=== PATIENT | male | born 1935 | race Caucasian/White ===

== ENCOUNTER 2021-05-28 13:13 | Emergency (ER) | payer MEDICARE, SELFPAY ==
[2021-05-28 13:20] VITALS: BP 150/91; PULSE 57; RESP 18; O2SAT 99; BMI 29.9
[2021-05-28 13:26] VITALS: PULSE 57; O2SAT 99
--- NOTE | 2021-05-28 13:27 | W.ED.MALEGU ---
HPI - Male Genitourinary General: Chief complaint: Urogenital-Male Stated complaint: NO URINE OUTPUT Time Seen by Provider: 05/28/21 13:21 Source: patient and EMS Mode of arrival: EMS Limitations: no limitations History of Present Illness: HPI Narrative: Patient is an 85-year-old male who has an indwelling Bridges catheter due to an enlarged prostate and states that so far today the Bridges catheter has not drained any urine. He is in a lot of pain in the suprapubic region. He denies any trauma, fever, other symptoms. Onset (ago): hour(s) Duration: constant Location: abdomen (Suprapubic) Severity scale (1-10): 10 Quality: aching Relieving factors: none Exacerbating factors: none Associated symptoms: Reports urinary retention; Deny discharge, dysuria, fevers/chills, hematuria, nausea, rash, swelling, urinary incontinence, mass or vomiting Review of Systems General: Reports: 10 or more systems reviewed and unremarkable except in HPI and below GI: Denies: nausea or vomiting : Denies: dysuria, urinary incontinence or hematuria Physical Exam Const: COMMON NORMALS: average body habitus, patient oriented x3, no limitations, healthy appearing, alert and well nourished GENERAL APPEARANCE: in distress HENMT: COMMON NORMALS: normocephalic, atraumatic and moist oral mucous membranes HEAD & SCALP: normocephalic and atraumatic Neck/C-Spine: COMMON NORMALS: no JVD Resp: COMMON NORMALS: normal respiratory effort, No retractions, No use of accessory muscles, clear to auscultation bilaterally and percussion normal AUSCULTATION: clear to auscultation bilaterally PERCUSSION: percussion normal Cardio: COMMON NORMALS: no JVD, regular rate, regular rhythm, S1 normal heart sound present, S2 normal heart sound present, No gallops present (Cardio), No clicks present (Cardio), No murmurs present (Cardio), No rub (Cardio) and Peripheral pulses 2+ throughout RATE: regular rate RHYTHM: regular rhythm HEART SOUNDS: S1 normal heart sound present and S2 normal heart sound present PERIPHERAL PULSES: Peripheral pulses 2+ throughout GI: COMMON NORMALS: Normal to inspection, nondistended, normoactive bowel sounds present, Soft to palpation, No hepatosplenomegaly present, no masses and no bruits PALPATION: Yes Soft to palpation, Yes Tenderness to palpation present (GI) (Suprapubic) and Yes No hepatosplenomegaly present Neuro: COMMON NORMALS: patient oriented x3 SENSORIUM/ORIENTATION: Yes alert Course Reevaluation(s): Reevaluation #1: Discussed his urinalysis with him. He appears to have a urinary tract infection. We will discharge him home with a prescription for oral antibiotics. He voiced understanding and is in agreement with the plan. He felt immediate relief after his Bridges catheter was changed and a new one inserted. He has drained about 400 mL of urine. Time: 14:29 Vital Signs: Vital signs: Vital Signs Pulse Rate 53 L 05/28/21 14:39 Respiratory Rate 18 05/28/21 14:39 Blood Pressure 136/50 05/28/21 14:39 Pulse Oximetry 96 05/28/21 14:39 MDM - Male MDM Narrative: Medical decision making narrative: 85-year-old male with a history of prostate issues who has a chronic indwelling Bridges catheter presents to the emergency department today after the catheter stopped draining urine earlier today. He was in acute urinary retention which promptly resolved following insertion of a new catheter. Analysis of his urine shows that he has a urinary tract infection and he is discharged home with oral antibiotic. He is to follow-up with his primary care provider and urologist. Medical Records: Attestation: I reviewed the patient's medical records. Lab Data: Attestation: I reviewed the patient's lab results. Labs: Lab Results 05/28/21 Range/Units 13:41 Urine Color Yellow (Yellow) Urine Appearance Hazy A (CLEAR) Urine pH 8 H (5-7) Ur Specific Gravit y 1.018 (1.005-1.030) Urine Protein 1+ H (Negative) Urine Glucose (UA) Norm (Normal) Urine Ketones 1+ H (Negative) Urine Blood 3+ H (Negative) Urine Nitrate Positive H (Negative) Urine Bilirubin Neg (Negative) Prot Sulfosalicyli c Acd Positive (Negative) Urine Urobilinogen Neg (Negative) mg/dL Ur Leukocyte Kandi ase 2+ H (Negative) Urine RBC 15-25 H (0-2) /hpf Urine WBC 25-40 H (0-5) /hpf Ur Squamous Epith Cells 0-4 H (0-5) /hpf Amorphous Sediment Not Reportable Urine Bacteria 4+ H (NONE) /hpf Urine Mucus 2+ /hpf Discharge Plan Discharge Patient Disposition: Home Clinical Impression: Acute retention of urine Urinary tract infection Qualifiers: Urinary tract infection type: catheter-associated UTI Indwelling urinary catheter type: indwelling urethral catheter Encounter type: initial encounter Qualified Code(s): T83.511A - Infection and inflammatory reaction due to indwelling urethral catheter, initial encounter Condition: Stable Prescriptions: New Augmentin 500-125 mg tablet 1 tab PO BID Qty: 14 RF: 0 Discharge Orders: Discharge ED (Routine); Ordered 05/28/21 Ordered By: James Smith Referrals: Scar Bell DO [Primary Care Provider] - 1-3 days Discharge Diet: Usual diet Discharge Activity: Increase activity as tolerated Patient Instructions: Urinary Retention in Men (ED), Urinary Tract Infection in Men (ED) Activity Restrictions/Additional Instructions: Return for any new or worsening symptoms. Follow-up with your primary care provider within 3 days. Continue your home medications. Take the antibiotic as prescribed. Coding Level of Care Code ED Associate Professor Of Radiology for [employer] Fwd Exam Detailed
[2021-05-28 14:08] LABS: Protein Urine 1+ (Negative); Specific Gravity, Urine 1.018 (1.005-1.030); Urine Appearance Hazy (CLEAR); Urine Color Yellow (Yellow); pH Urine 8 (5-7)
[2021-05-28 14:09] LABS: Add Urine Culture? Yes; Add Urine Microscopic? YES; Bacteria Urine 4+ /hpf; Bilirubin Urine Neg (Negative); Blood Urine 3+ (Negative); Glucose Urine UA Norm (Normal); Ketones Urine 1+ (Negative); Leukocyte Esterase Urine 2+ (Negative); Mucus Urine 2+ /hpf; Nitrate Urine Positive (Negative); RBC Urine 15-25 /hpf (0-2); Squamous Epithelial Cell Urine 0-4 /hpf (0-5); Sulfosalicylic Acid Urine Positive (Negative); Urobilinogen Urine Neg (Negative); WBC Urine 25-40 /hpf (0-5)
[2021-05-28 14:39] VITALS: BP 136/50; PULSE 53; RESP 18; O2SAT 96
== END 2021-05-28 14:40 | disposition home or self-care (01) ==
PROVIDERS: Emergency Provider Family Medicine; PCP Family Medicine
DX: T83.518A Infection and inflammatory reaction due to other urinary catheter, initial encounter (principal); N39.0 Urinary tract infection, site not specified; N40.1 Benign prostatic hyperplasia with lower urinary tract symptoms; R33.8 Other retention of urine; N40.0 Benign prostatic hyperplasia without lower urinary tract symptoms; Z96.0 Presence of urogenital implants; Y84.8 Other medical procedures as the cause of abnormal reaction of the patient, or of later complication, without mention of misadventure at the time of the procedure
CPT/HCPCS: 51702; 81001; 87077; 87086; 87186; 99283

== ENCOUNTER 2021-07-04 20:24 | Emergency (ER) | payer OTHER, MEDICARE, SELFPAY ==
[2021-07-04 20:30] VITALS: BP 152/63; PULSE 66; RESP 18; TEMP 36.8; O2SAT 97; BMI 29.7
--- NOTE | 2021-07-04 20:43 | W.ED.MALEGU ---
HPI - Male Genitourinary General: Chief complaint: Urogenital-Male Stated complaint: blocked catheter Time Seen by Provider: 07/04/21 20:41 History of Present Illness: HPI Narrative: 85-year-old male patient comes in with abdominal discomfort due to poor urinary output. Patient has had a Bridges catheter since February due to prostatic hypertrophy. Patient had the catheter replaced last month in the emergency room for similar complaints. Patient was placed on antibiotic today but has yet to be started on it. Patient appears well. Patient denies any fever. Patient appears in mild to moderate pain. Review of Systems General: Reports: 10 or more systems reviewed and unremarkable except in HPI and below GI: Reports: abdominal pain Physical Exam Const: COMMON NORMALS: no acute distress and patient oriented x3 GENERAL APPEARANCE: cooperative HENMT: COMMON NORMALS: normocephalic and Normal external nose present HEAD & SCALP: normal to inspection and normocephalic NOSE: Normal external nose present Eye: GENERAL EYE: appearance normal, both eyes and all related structures Neck/C-Spine: COMMON NORMALS: full ROM Chest: COMMONS NORMALS: normal inspection of the chest Resp: COMMON NORMALS: normal respiratory effort EFFORT & INSPECTION: Yes able to speak in complete sentences Cardio: COMMON NORMALS: regular rate and regular rhythm RATE: regular rate RHYTHM: regular rhythm GI: COMMON NORMALS: non-tender : COMMON NORMALS: Yes no CVA tenderness BLADDER/KIDNEY EXAM: Yes no CVA tenderness OTHER: Urine is noted in the leg bag of catheter. Patient reports suprapubic discomfort on palpation. Back/Pelvis: COMMON NORMALS: no CVA tenderness and thoracic and lumbar spine normal to inspection Extremity: COMMON NORMALS: normal to inspection Neuro: COMMON NORMALS: patient oriented x3 and moves all extremities Psych: COMMON NORMALS: mental status grossly normal and cooperative Skin: COMMON NORMALS: no rashes or lesions noted GENERAL SKIN EXAM: no rashes or lesions noted Course Vital Signs: Vital signs: Vital Signs Temperature 98.2 F 07/04/21 20:30 Pulse Rate 62 07/04/21 21:07 Respiratory Rate 20 H 07/04/21 21:07 Blood Pressure 145/76 07/04/21 21:07 Pulse Oximetry 98 07/04/21 21:07 MDM - Male MDM Narrative: Medical decision making narrative: Patient came in for urinary catheter not draining. Patient had talked to his primary care earlier today and they were supposed to call in an antibiotic but they did not. Patient came in tonight due to worsening pain and discomfort. On exam abdomen was tender in the suprapubic area. Respirations were even lungs were clear to auscultation. Skin was warm and dry. Differential diagnosis includes UTI, acute urinary retention, dysfunctional Bridges catheter. Bridges catheter was replaced urine was sent to lab and noted a large amount of white blood cells and red blood cells. Patient will be started on Cipro 500 mg twice a day for the next 7 days. Patient did report relief after Bridges catheter change. Patient will be continued with routine care and follow-up with primary care as needed. Lab Data: Labs: Lab Results 07/04/21 Range/Units 21:01 Urine Color Yellow (Yellow) Urine Appearance Cloudy (CLEAR) Urine pH 5 (5-7) Ur Specific Gravit y 1.025 (1.005-1.030) Urine Protein Neg (Negative) Urine Glucose (UA) Norm (Normal) Urine Ketones Negative (Negative) Urine Blood 3+ H (Negative) Urine Nitrate Negative (Negative) Urine Bilirubin Neg (Negative) Urine Urobilinogen Norm (Negative) mg/dL Ur Leukocyte Kandi ase 2+ H (Negative) Urine RBC Too numerous to c nt H (0-2) /hpf Urine WBC Too numerous to c nt H (0-5) /hpf Ur Squamous Epith Cells 5-10 H (0-5) /hpf Amorphous Sediment Not Reportable Urine Bacteria 2+ H (NONE) /hpf Urine Mucus 1+ /hpf Discharge Plan Discharge Patient Disposition: Home Clinical Impression: Acute retention of urine Urinary tract infection Qualifiers: Urinary tract infection type: acute cystitis Hematuria presence: with hematuria Qualified Code(s): N30.01 - Acute cystitis with hematuria Condition: Stable Prescriptions: New Cipro 500 mg tablet 500 mg PO BID Qty: 14 RF: 0 No Action Augmentin 500-125 mg tablet 1 tab PO BID Qty: 14 RF: 0 Discharge Orders: Discharge ED (Routine); Ordered 07/04/21 Ordered By: Jimy Elliott Referrals: Delmy Espinosa MD [Primary Care Provider] - Discharge Diet: Usual diet Discharge Activity: Increase activity as tolerated Patient Instructions: Bridges Catheter Placement and Care (ED), Opioid Safety Activity Restrictions/Additional Instructions: Drink plenty of fluids. Use antibiotics as directed for the next 7 days. Follow-up with primary care in 7 days for recheck of urine. Return to the ER for new concerns. Coding Level of Care Code ED Network Operations Manager for [employer] Fwkin Exam Comprehensive
[2021-07-04 21:07] VITALS: BP 145/76; PULSE 62; RESP 20; O2SAT 98
[2021-07-04 21:32] LABS: Add Urine Microscopic? YES; Bilirubin Urine Neg (Negative); Blood Urine 3+ (Negative); Glucose Urine UA Norm (Normal); Ketones Urine Negative (Negative); Leukocyte Esterase Urine 2+ (Negative); Nitrate Urine Negative (Negative); Protein Urine Neg (Negative); Specific Gravity, Urine 1.025 (1.005-1.030); Urine Appearance Cloudy (CLEAR); Urine Color Yellow (Yellow); Urobilinogen Urine Norm (Negative); pH Urine 5 (5-7)
[2021-07-04 21:33] LABS: Add Urine Culture? Yes; Bacteria Urine 2+ /hpf; Mucus Urine 1+ /hpf; RBC Urine TOO NUMEROUS TO CNT /hpf (0-2); WBC Urine TOO NUMEROUS TO CNT /hpf (0-5)
[2021-07-04] MEDS: ciprofloxacin 500 mg Tablet PO (21:42)
[2021-07-04 21:59] VITALS: BP 140/72; PULSE 66; RESP 18; O2SAT 98
== END 2021-07-04 22:06 | disposition home or self-care (01) ==
PROVIDERS: Emergency Provider Nurse Practitioner Family; PCP Family Medicine
DX: N30.01 Acute cystitis with hematuria (principal); R33.9 Retention of urine, unspecified
CPT/HCPCS: 51702; 81001; 87077; 87086; 87186; 99283

== ENCOUNTER 2021-08-01 08:21 | Emergency (ER) | payer OTHER, MEDICARE, SELFPAY ==
[2021-08-01 08:33] VITALS: BP 149/57; PULSE 64; RESP 24; TEMP 36.5; O2SAT 95; BMI 29.7
--- NOTE | 2021-08-01 08:43 | W.ED.MALEGU ---
Documented by User: MEGHAN Dumont 08/01/21 11:47 HPI - Male Genitourinary General: Chief complaint: Urogenital-Male Stated complaint: CLOGGED CATHETER Time Seen by Provider: 08/01/21 08:25 History of Present Illness: HPI Narrative: Patient states he has had a Bridges cath in since February. He gets clogged about once a month he has had have a change. Never has been taught how to flush the catheter. Personally cath seems to have got stopped up last night and he is in here to get it clear to get it changed. Does see a urologist in [place]. Complaint: other (Clogged Bridges catheter) Onset (ago): hour(s) Duration: constant Review of Systems Const: Denies: fever(s) or chills : Reports: difficulty urinating; Denies: flank pain Psych: Denies: anxiety or depression Physical Exam Const: COMMON NORMALS: no acute distress GENERAL APPEARANCE: cooperative : COMMON NORMALS: Yes no CVA tenderness BLADDER/KIDNEY EXAM: Yes no CVA tenderness MALE GROIN/PERINEUM EXAM: Yes other (Catheter is in place) Back/Pelvis: COMMON NORMALS: no CVA tenderness Psych: ATTITUDE: Yes calm Course Vital Signs: Vital signs: Vital Signs Temperature 97.7 F 08/01/21 08:33 Pulse Rate 55 L 08/01/21 10:18 Respiratory Rate 20 H 08/01/21 10:18 Blood Pressure 122/40 08/01/21 10:18 Pulse Oximetry 97 08/01/21 10:18 MDM - Male MDM Narrative: Medical decision making narrative: Patient's Bridges was clogged. New Bridges was placed in. UA shows infection. Patient placed on Macrobid called in the [facility]. Discharge Plan Discharge Patient Disposition: Home Clinical Impression: UTI (urinary tract infection), uncomplicated Complication of Bridges catheter Qualifiers: Encounter type: initial encounter Qualified Code(s): T83.9XXA - Unspecified complication of genitourinary prosthetic device, implant and graft, initial encounter Condition: Stable Prescriptions: New Macrobid 100 mg capsule 100 mg PO BID 5 Days Qty: 10 RF: 0 No Action Cipro 500 mg tablet 500 mg PO BID Qty: 14 RF: 0 Augmentin 500-125 mg tablet 1 tab PO BID Qty: 14 RF: 0 Discharge Orders: Discharge ED (Routine); Ordered 08/01/21 Ordered By: Kel Otero Referrals: Delmy Espinosa MD [Primary Care Provider] - Discharge Diet: Usual diet Discharge Activity: Resume usual activity Patient Instructions: Bridges Catheter Placement and Care (ED) Activity Restrictions/Additional Instructions: Follow-up urologist as directed. Flush catheter as needed and instructed. Coding Level of Care Code ED Supervisor Tunnel Heading for Chg Fwd Exam Expanded Problem Focused Documented by User: Richard Farrell DO 08/02/21 10:43 HPI - Male Genitourinary General: Chief complaint: Urogenital-Male Stated complaint: CLOGGED CATHETER Time Seen by Provider: 08/01/21 08:25 Course Vital Signs: Vital signs: Vital Signs Temperature 97.7 F 08/01/21 08:33 Pulse Rate 55 L 08/01/21 10:18 Respiratory Rate 20 H 08/01/21 10:18 Blood Pressure 122/40 08/01/21 10:18 Pulse Oximetry 97 08/01/21 10:18 MDM - Male MDM Narrative: Medical decision making narrative: Patient seen by Kel Otero Case reviewed agree with assessment and plan Discharge Plan Discharge Patient Disposition: Home Clinical Impression: UTI (urinary tract infection), uncomplicated Complication of Bridges catheter Qualifiers: Encounter type: initial encounter Qualified Code(s): T83.9XXA - Unspecified complication of genitourinary prosthetic device, implant and graft, initial encounter Condition: Stable Prescriptions: New Macrobid 100 mg capsule 100 mg PO BID 5 Days Qty: 10 RF: 0 No Action Cipro 500 mg tablet 500 mg PO BID Qty: 14 RF: 0 Augmentin 500-125 mg tablet 1 tab PO BID Qty: 14 RF: 0 Discharge Orders: Discharge ED (Routine); Ordered 08/01/21 Ordered By: Kel Otero Referrals: Delmy Espinosa MD [Primary Care Provider] - Discharge Diet: Usual diet Discharge Activity: Resume usual activity Patient Instructions: Bridges Catheter Placement and Care (ED) Activity Restrictions/Additional Instructions: Follow-up urologist as directed. Flush catheter as needed and instructed. Coding Level of Care Code ED Supervisor Tunnel Heading for [place] Fwd Exam Expanded Problem Focused
[2021-08-01 10:18] VITALS: BP 122/40; PULSE 55; RESP 20; O2SAT 97
== END 2021-08-01 10:20 | disposition home or self-care (01) ==
PROVIDERS: Emergency Provider Nurse Practitioner Family; PCP Family Medicine
DX: T83.098A Other mechanical complication of other urinary catheter, initial encounter (principal); N39.0 Urinary tract infection, site not specified; Y73.1 Therapeutic (nonsurgical) and rehabilitative gastroenterology and urology devices associated with adverse incidents
CPT/HCPCS: 51702; 99282